=== PATIENT | female | born 1935 | race Caucasian/White ===

== ENCOUNTER 2018-08-22 16:54 | Emergency (ER) | payer OTHER ==
[~2018-08-22] VITALS: Ht 154.9 cm; Wt 52.2 kg
[2018-08-22] MEDS ORDERED: PROTONIX40 M1 PO (17:01)
[2018-08-22] MEDS ORDERED: HYZAAR 100-251 EACH PO (17:01)
[2018-08-22] MEDS ORDERED: NEURONTIN600 MG (17:02)
== END 2018-08-22 22:00 | disposition home or self-care (01) ==
LOC: ER 16:54
DX: K52.89 Other specified noninfective gastroenteritis and colitis (principal)

== ENCOUNTER 2019-01-06 11:36 | Emergency (ER) | payer OTHER ==
[~2019-01-06] VITALS: Ht 154.9 cm; Wt 52.2 kg
[~2019-01-06 11:36] MED LIST: HYZAAR 100-251 EACH PO; NEURONTIN600 MG; PROTONIX40 M1 PO
[2019-01-06] MEDS ORDERED: NEURONTIN300 MG (12:05)
== END 2019-01-06 14:52 | disposition home or self-care (01) ==
LOC: ER 11:36
DX: S00.83XA Contusion of other part of head, initial encounter (principal); W18.39XA Other fall on same level, initial encounter; Y93.01 Activity, walking, marching and hiking; Y92.018 Other place in single-family (private) house as the place of occurrence of the external cause; Y99.8 Other external cause status

== ENCOUNTER 2019-03-07 13:01 | Emergency (ER) | payer OTHER ==
[~2019-03-07] VITALS: Ht 154.9 cm; Wt 51.7 kg
[~2019-03-07 13:01] MED LIST changes: +NEURONTIN300 MG
[2019-03-07] MEDS ORDERED: AMBIEN10 MG PO (13:27)
[2019-03-07] MEDS ORDERED: CEFADROXIL500 MG PO (18:50)
[2019-03-07] MEDS ORDERED: PEPCID AC20 MG PO (18:50)
== END 2019-03-07 20:01 | disposition home or self-care (01) ==
LOC: ER 13:01
DX: N39.0 Urinary tract infection, site not specified (principal); R53.1 Weakness; B96.89 Other specified bacterial agents as the cause of diseases classified elsewhere

== ENCOUNTER 2019-03-19 14:26 | Inpatient (IN) | payer OTHER ==
[~2019-03-19] VITALS: Ht 152.4 cm; Wt 45.8 kg
[~2019-03-19 14:26] MED LIST changes: +AMBIEN10 MG PO; +CEFADROXIL500 MG PO; -NEURONTIN300 MG; +NEURONTIN300 MG PO; +PEPCID AC20 MG PO
--- NOTE | 2019-03-19 14:37 | NUR ---
REFIERE VOMITOS 3 EPISODIOS Y DIARREAS, FAMILIAR REFIERE QUE MEDICO PRIMARIO LA REFIRIO A JOEY, SE UBICA EN AREA DE OBSERVACION.
--- NOTE | 2019-03-19 15:50 | NUR ---
SE ORIENTA PTE Y FAMILIAR SOBRE TX MEDICO EL CUAL REFIERE ENTENDER,SE LE EXTRAEN MUESTRAS,SE CANALIZA Y SE ADMINISTRA MEDICAMENTO TRISHA ORDEN MEDICA.
[2019-04-16] MEDS ORDERED: CARVEDILOL12.5 MG PO (15:52)
[2019-04-16] MEDS ORDERED: AMIODARONE HCL200 MG PO (15:52)
[2019-04-16] MEDS ORDERED: GABAPENTIN300 MG PO (15:53)
[2019-04-16] MEDS ORDERED: GABAPENTIN100 MG PO (15:54)
[2019-04-16] MEDS ORDERED: TUSSIN DM LIQU118 ML PO (15:54)
[2019-04-16] MEDS ORDERED: CARAFATE1 GM PO (15:55)
[2019-04-16] MEDS ORDERED: FAMOTIDINE20 MG PO (15:55)
[2019-04-16] MEDS ORDERED: SIMETHICONE125 M1 PO (15:55)
[2019-04-16] MEDS ORDERED: Vitamin B-6 PO (15:56)
[2019-04-16] MEDS ORDERED: LASIX20 MG PO (15:58)
== END 2019-04-16 17:17 | disposition home or self-care (01) | DRG 391 ==
LOC: ER 14:26 → SEC-K 17:59 → MEDI 17:59 → MEDJ 03-21 20:29 → ICU 04-02 15:41 → MEDJ 04-10 21:36
PROVIDERS: ADMIT Internal Medicine
PROC: BW21ZZZ Computerized Tomography (CT Scan) of Abdomen and Pelvis (ICD-10-PCS; principal; 2019-03-19)
PROC: BH4CZZZ Ultrasonography of Head and Neck (ICD-10-PCS; 2019-03-26)
PROC: BW40ZZZ Ultrasonography of Abdomen (ICD-10-PCS; 2019-03-28)
PROC: CD171ZZ Planar Nuclear Medicine Imaging of Gastrointestinal Tract using Technetium 99m (Tc-99m) (ICD-10-PCS; 2019-03-28)
PROC: 4A033R1 Measurement of Arterial Saturation, Peripheral, Percutaneous Approach (ICD-10-PCS; 2019-04-01)
PROC: 02HV33Z Insertion of Infusion Device into Superior Vena Cava, Percutaneous Approach (ICD-10-PCS; 2019-04-01)
PROC: 3E0F7GC Introduction of Other Therapeutic Substance into Respiratory Tract, Via Natural or Artificial Opening (ICD-10-PCS; 2019-04-01)
PROC: 4A12X4Z Monitoring of Cardiac Electrical Activity, External Approach (ICD-10-PCS; 2019-04-02)
PROC: B246ZZZ Ultrasonography of Right and Left Heart (ICD-10-PCS; 2019-04-02)
PROC: 0T9B70Z Drainage of Bladder with Drainage Device, Via Natural or Artificial Opening (ICD-10-PCS; 2019-04-03)
PROC: 30233N1 Transfusion of Nonautologous Red Blood Cells into Peripheral Vein, Percutaneous Approach (ICD-10-PCS; 2019-04-04)
DX: K31.84 Gastroparesis (principal); I50.21 Acute systolic (congestive) heart failure; N39.0 Urinary tract infection, site not specified; G95.89 Other specified diseases of spinal cord; G91.8 Other hydrocephalus; J90 Pleural effusion, not elsewhere classified; E44.0 Moderate protein-calorie malnutrition; K52.89 Other specified noninfective gastroenteritis and colitis; I48.0 Paroxysmal atrial fibrillation; E86.0 Dehydration; E87.8 Other disorders of electrolyte and fluid balance, not elsewhere classified; K57.30 Diverticulosis of large intestine without perforation or abscess without bleeding; K44.9 Diaphragmatic hernia without obstruction or gangrene; I08.3 Combined rheumatic disorders of mitral, aortic and tricuspid valves; G58.8 Other specified mononeuropathies; E87.6 Hypokalemia; N39.8 Other specified disorders of urinary system; I11.0 Hypertensive heart disease with heart failure; M54.2 Cervicalgia; D63.8 Anemia in other chronic diseases classified elsewhere; D50.8 Other iron deficiency anemias; Z79.01 Long term (current) use of anticoagulants

== ENCOUNTER 2022-07-09 16:56 | Emergency (ER) | payer OTHER ==
[~2022-07-09] VITALS: Ht 160 cm; Wt 49.9 kg
[~2022-07-09 16:56] MED LIST changes: +AMIODARONE HCL200 MG PO; +CARAFATE1 GM PO; +CARVEDILOL12.5 MG PO; +FAMOTIDINE20 MG PO; +GABAPENTIN100 MG PO; +GABAPENTIN300 MG PO; +LASIX20 MG PO; +SIMETHICONE125 M1 PO; +TUSSIN DM LIQU118 ML PO; +Vitamin B-6 PO
[2022-07-09] MEDS ORDERED: CHILDREN'S ASPI81 MG (17:19)
[2022-07-09] MEDS ORDERED: LASIX20 MG (17:19)
[2022-07-09] MEDS ORDERED: NORVASC10 MG (17:19)
[2022-07-09] MEDS ORDERED: LEXAPRO20 MG (17:20)
[2022-07-09] MEDS ORDERED: COZAAR100 MG (17:20)
[2022-07-09] MEDS ORDERED: CARAFATE1 GM (17:20)
[2022-07-09] MEDS ORDERED: TRAZODONE HCL150 MG (17:20)
[2022-07-09] MEDS ORDERED: PEPCID AC20 MG (17:21)
== END 2022-07-10 00:24 | disposition home or self-care (01) ==
LOC: ER 16:56
DX: U07.1 COVID-19 (principal); I10 Essential (primary) hypertension; J84.10 Pulmonary fibrosis, unspecified; I49.9 Cardiac arrhythmia, unspecified; N39.0 Urinary tract infection, site not specified

== ENCOUNTER 2022-11-16 14:59 | Emergency (ER) | payer OTHER ==
[~2022-11-16] VITALS: Ht 152.4 cm; Wt 52.2 kg
[~2022-11-16 14:59] MED LIST changes: +CARAFATE1 GM; +CHILDREN'S ASPI81 MG; +COZAAR100 MG; +LASIX20 MG; +LEXAPRO20 MG; +NORVASC10 MG; +PEPCID AC20 MG; +TRAZODONE HCL150 MG
[2022-11-16] MEDS ORDERED: TRAZODONE HCL150 MG (15:37)
== END 2022-11-16 22:11 | disposition home or self-care (01) ==
LOC: ER 14:59
DX: M54.89 Other dorsalgia (principal); M25.552 Pain in left hip; R07.81 Pleurodynia

== ENCOUNTER 2022-12-29 13:43 | Emergency (ER) | payer OTHER ==
[~2022-12-29] VITALS: Ht 162.6 cm; Wt 58.1 kg
[2022-12-29] MEDS ORDERED: MOBIC7.5 MG PO (16:08)
== END 2022-12-29 16:48 | disposition home or self-care (01) ==
LOC: ER 13:43
DX: M12.562 Traumatic arthropathy, left knee (principal); I48.20 Chronic atrial fibrillation, unspecified; I10 Essential (primary) hypertension; J44.9 Chronic obstructive pulmonary disease, unspecified; Z98.2 Presence of cerebrospinal fluid drainage device